=== PATIENT | female | born 1950 | race Caucasian/White ===

== ENCOUNTER 2016-05-12 15:41 | Inpatient (IN) | payer OTHER, MEDICARE ==
[~2016-05-12] VITALS: Ht 157.5 cm; Wt 80.2 kg
[2016-05-16] MEDS ORDERED: ASCO500C PO (09:32)
[2016-05-16] MEDS ORDERED: CENTTAB PO (09:32)
[2016-05-16] MEDS ORDERED: ATOR10TA15 PO (09:32)
[2016-05-16] MEDS ORDERED: LUTE20CA PO (09:32)
[2016-05-16] MEDS ORDERED: ATEN25TA PO (09:32)
[2016-06-01] MEDS ORDERED: TRANEXAMIC ACID IV SCH ×2 (09:00→14:00)
[2016-06-01] MEDS ORDERED: ceFAZolin 2 GM PREMIX 50 ML IV SCH (09:00)
[2016-06-01] MEDS: SODIUM CHLORID 0.9% 500 ML IV SCH (09:00)
[2016-06-01] MEDS ORDERED: DEXAMETHASONE SOD PHOS 20 MG/5 ML VIAL IV ONE (09:00)
[2016-06-01] MEDS ORDERED: VANCOMYCIN 1000 MG/NS 250 ML (for <70 kg) IV SCH ×2 (09:00)
[2016-06-01] MEDS: POVIDONE IODINE 7.5% SCRUB 118 ML BOTTLE TOP SCH (09:00)
[2016-06-01] MEDS ORDERED: SODIUM CHLORIDE 0.9% IV SCH ×2 (09:00→14:00)
[2016-06-01] MEDS ORDERED: INSULIN HUMAN REGULAR 1,000 UNITS/10 ML VIAL SQ PRN (09:00)
[2016-06-01] MEDS ORDERED: METOPROLOL TARTRATE 25 MG TAB PO PRN (09:00)
[2016-06-01] MEDS: ROPIVACAINE PERI-ARTICULAR INJECTION. PERIART SCH ×10 (09:00→12:05)
[2016-06-01 09:24] VITALS: BP 146/73; PULSE 69; RESP 16; TEMP 98.7; O2SAT 97
[2016-06-01] MEDS: LACTATED RINGER'S 1000 ML IV SCH (09:40)
[2016-06-01] MEDS ORDERED: DEXAMETHASONE SOD PHOS 4 MG/ML VIAL ONE (10:24)
[2016-06-01] MEDS ORDERED: MIDAZOLAM HCL 5 MG/5 ML VIAL ONE (10:24)
[2016-06-01] MEDS ORDERED: FAMOTIDINE 20 MG/2 ML VIAL ONE (10:24)
[2016-06-01] MEDS ORDERED: GENTAMICIN SULFATE 80 MG/2 ML VIAL ONE (10:54)
[2016-06-01] MEDS ORDERED: BUPIVACAINE LIPOSOME PF 1.3% 20 ML VIAL ONE (11:18)
--- NOTE | 2016-06-01 13:08 | PD.OP ---
cc: Tim Garland MD Operative Report Date of Surgery: Jun 01, 2016 Preoperative Diagnosis: Right knee severe osteoarthritis Postoperative Diagnosis: Same Procedure: Right total knee arthroplasty Anesthesia: Spinal and adductor canal block Surgeon: Tim Garland Asp Developer(s): ALEJANDRO Vega The surgical procedure was assisted by my Advanced Registered Nurse Practitioner. My MEDICAL VIDEOGRAPHER presence was necessary throughout this case for the manipulation and positioning of the surgical extremity. My MEDICAL VIDEOGRAPHER was assisting me throughout the duration of this procedure. The skill set of an Advance Registered Nurse Practitioner was medically necessary to complete this procedure. During the surgical case, the surgical appliance fitter was working at the back table and the Advance Registered Nurse Practitioner was directly assisting me. Operation and Findings: IMPLANTS: DePuy Attune: Patella: size 32. Femur, posterior stabilized size 4. Tibia, rotating platform size 3. Tibial insert, rotating platform, posterior stabilized size 8 mm thickness. ESTIMATED BLOOD LOSS: 150 cc TOURNIQUET TIME: 36 minutes at 250 mmHg pressure. JUSTIFICATION FOR PROCEDURE: The patient has end-stage osteoarthritis to the knee. There is an attached conservative measures pathway form in the chart that describes the nonoperative measures that were undertaken prior to consideration of surgical management. The patient understood the risks and benefits of surgical management. See my office notes for further details PROCEDURE: The patient was brought back to the operative theatre. Adequate anesthesia was obtained. The patient received intravenous vancomycin and Ancef. The lower extremity was prepped and draped in the usual sterile fashion.The leg was exsanguinated, the tourniquet was raised. A standard anterior incision was performed followed by medial parapatellar arthrotomy was performed. End-stage arthritis was identified. Osteotomy of the patella was performed. We drilled holes for the patella. We trialed the patella component. We placed an intramedullary guide into the distal femur. We ultimately resected 12 mm off of the distal femur in 5 degrees of valgus. The remnants of the ACL and PCL were resected. Osteotomy of the proximal tibia was performed, resecting 5 mm off of the medial side. This was done with 3 degrees of posterior slope using an extramedullary guide. The distal end of the guide was placed in the mid aspect of the ankle. The femur was sized, and four chamfer cuts were completed in 3 of external rotation. We then cut the central box in the distal femur to replace the PCL. We resected the remnants of the menisci and removed osteophytes off of the femur and tibia. We then trialed the knee. We punched the tibia for the keel, and then used standard technique to cement in components. Excess cement was removed. We trialed the knee again and the final polyethylene thickness was chosen to provide extension to 0 degrees, and flexion of 140 degrees to gravity. The ligaments were appropriately balanced. Lateral release was not necessary to obtain excellent patellofemoral tracking. The tourniquet was released and adequate hemostasis was obtained. An intra- articular injection of a ropivacaine cocktail was injected. The posterior knee was inspected for excess cement, which was removed. The final polyethylene was put into position after thorough irrigation. We then closed deep fascia with a #2 Stratafix followed by skin with 2-0 Vicryl followed by kalyn. Postop plan is to weight-bear as tolerated. DVT prophylaxis will be performed with Maurice, VENESSA sanchez, early mobilization, and Lovenox followed by aspirin. Tim Garland MD Jun 01, 2016 13:08
[2016-06-01] MEDS ORDERED: ASPI325T PO (13:10)
[2016-06-01] MEDS ORDERED: ENOX40P SQ (13:10)
[2016-06-01] MEDS ORDERED: NORC5TAB PO (13:10)
[2016-06-01] MEDS ORDERED: ZOLPIDEM TARTRATE 5 MG TAB PO PRN (13:15)
[2016-06-01] MEDS ORDERED: MAGNESIUM HYDROXIDE SUSP 30 ML CUP PO PRN (13:15)
[2016-06-01] MEDS ORDERED: ALUMINUM/MAGNESIUM/SIMETH 30 ML CUP PO PRN (13:15)
[2016-06-01] MEDS ORDERED: SODIUM CHLORIDE 0.9% FLUSH 5 ML FLUSH IVF PRN (13:15)
[2016-06-01] MEDS ORDERED: BISACODYL 10 MG SUPP PR PRN (13:15)
[2016-06-01] MEDS ORDERED: diphenhydrAMINE HCL 50 MG/ML VIAL IV PRN (13:15)
[2016-06-01] MEDS ORDERED: Post-op Orders (for Pharmacy) MISC XX ONE (13:15)
[2016-06-01] MEDS ORDERED: NALOXONE HCL 0.4 MG/ML AMP IV PRN (13:15)
[2016-06-01] MEDS ORDERED: MORPHINE SULFATE 4 MG/ML INJ IV PUSH PRN (13:15)
[2016-06-01] MEDS ORDERED: *morphine SULFATE 8 MG/ML PERIprocedure ONLY ONE ×3 (13:50→14:27)
[2016-06-01] MEDS ORDERED: LACTATED RINGER'S 1000 ML INJ 1,000 ML IV ONE (14:07)
[2016-06-01] MEDS ORDERED: PROPOFOL 200 MG/20 ML AMP IV ONE (14:07)
[2016-06-01] MEDS ORDERED: PHENYLEPH/NS 1000 MCG/10 ML SYR IV ONE (14:07)
[2016-06-01] MEDS: SODIUM CHLOR 0.9% 1000 ML INJ 1,000 ML IV SCH ×2 (14:12→23:05)
--- NOTE | 2016-06-01 15:11 | RADRPT ---
EXAM DATE/TIME: 06/01/2016 14:08 [facility] COMPARISON: No previous studies available for comparison. INDICATIONS: Post-op Right knee. MEDICAL HISTORY: None. SURGICAL HISTORY: None. ENCOUNTER: Initial ACUITY: 1 day PAIN SCORE: 0/10 LOCATION: Right Knee. FINDINGS: The patient is status post right total knee replacement. The prosthesis appears to be in good positi on. There is no fracture or dislocation. CONCLUSION: Status post right total knee replacement with prosthesis in good position. John Paul Mandujano MD on June 01, 2016 at 15:01 Board Certified Radiologist. This report was verified electronically.
--- NOTE | 2016-06-01 15:22 | PD.CONS ---
HPI [facility] Consult Requested By Primary Care Physician Paz Bateman M.D. Diagnoses: Past Family Social History Allergies: Coded Allergies: No Known Allergies (Verified , 06/01/16) Physical Exam Vital Signs Vital Signs Date Time Temp Pulse Resp B/P Pulse Ox O2 Delivery O2 Flow Rate FiO2 06/01/16 09:24 98.7 69 16 146/73 97 Physical Exam GENERAL: This is a well-nourished, well-developed patient, in no apparent distress. SKIN: No rashes, ecchymoses or lesions. Cool and dry. HEAD: Atraumatic. Normocephalic. No temporal or scalp tenderness. EYES: Pupils equal round and reactive. Extraocular motions intact. No scleral icterus. No injection or drainage. ENT: Nose without bleeding, purulent drainage or septal hematoma. Throat without erythema, tonsillar hypertrophy or exudate. Uvula midline. Airway patent. NECK: Trachea midline. No JVD or lymphadenopathy. Supple, nontender, no meningeal signs. CARDIOVASCULAR: Regular rate and rhythm without murmurs, gallops, or rubs. RESPIRATORY: Clear to auscultation. Breath sounds equal bilaterally. No wheezes , rales, or rhonchi. GASTROINTESTINAL: Abdomen soft, non-tender, nondistended. No hepato-splenomegaly , or palpable masses. No guarding. MUSCULOSKELETAL: Extremities without clubbing, cyanosis, or edema. No joint tenderness, effusion, or edema noted. No calf tenderness. Negative Homans sign bilaterally. NEUROLOGICAL: Awake and alert. Cranial nerves II through XII intact. Motor and sensory grossly within normal limits. Five out of 5 muscle strength in all muscle groups. Normal speech. Laboratory Laboratory Tests Test 06/01/16 09:40 Blood Type O POSITIVE Antibody Screen NEGATIVE Blood Bank Comment A/P Assessment and Plan See dictation. Case discussed with Dr. Cifuentes, pt seen on his behalf. Maia Hollingsworth Jun 01, 2016 15:22
[2016-06-01] MEDS: ACETAMINOPHEN/HYDROcodone 325 MG/5 MG TAB PO PRN ×2 (16:12→20:53)
--- NOTE | 2016-06-01 16:16 | MB ---
cc: JACKY CIFUENTES DATE OF CONSULTATION: 06/01/2016 DATE OF : 1950 REASON FOR CONSULTATION: Medical management. HISTORY OF PRESENT ILLNESS This is a pleasant 65-year-old white female who has been seeking medical treatment for severe osteoarthritis. The patient has been followed per Dr. Garland for her conservative treatment but at this point decided that a right total knee arthroplasty was an option she decided to take. She is status post her surgery now, currently in the PACU. She is resting quietly in the bed. Her eyes are closed but she does open them to verbal stimuli and is able to carry on a conversation. She is currently oriented x 4. Currently the patient has a CPM machine on. She denies any nausea, vomiting, no chest pain, no shortness of breath, no fever, appears to be resting comfortably. The patient denies any urinary symptoms of dysuria. She does note some frequency over the recent past but she attributed that to drinking large amounts of tea. PAST MEDICAL HISTORY 1. Hyperlipidemia. 2. Hypertension. 3. Fibroid tumors. 4. Seasonal allergies. 5. ETOH abuse. 6. Osteoarthritis of both knees. 7. Low back pain. PAST SURGICAL HISTORY 1. Exploratory lap for excision of fibroid tumors. 2. T&A in high school. 3. Currently status post total right knee arthroplasty. ALLERGIES None known. MEDICATION Please see med reconciliation sheet. Those medications are: 1. Atenolol. 2. Atorvastatin. 3. Multivitamins. 4. Lutein. 5. Vitamin C. SOCIAL HISTORY The patient is , currently lives at home with her . She denies any tobacco use. She does admit to ETOH use but states it is socially. No illicit drugs. FAMILY HISTORY Positive for pneumonia, CVA and hypertension. REVIEW OF SYSTEMS A 10-point review was obtained, positives noted are urinary frequency, status post her right total knee arthroplasty. Other systems are negative. PHYSICAL EXAMINATION VITAL SIGNS: Temperature is 98.7, pulse 69, respirations 16, blood pressure 146/73. 02 sat 97. GENERAL: This is a well-nourished, well-developed white female who looks to be her stated age, resting in the bed. She is alert, oriented and cooperative and a good historian. HEENT: Normocephalic, atraumatic. PERRLA at 2. No scleral icterus. Mucous membranes are pink and moist. No nasal drainage. NECK: Supple. Trachea is midline. SKIN: Warm and dry, slightly pale. CARDIOVASCULAR: S1, S2. No murmurs, rubs or gallops audible. She has no edema and her pulses are intact. PULMONARY: Lung sounds are essentially clear anteriorly and posteriorly but no wheezes, rales or rhonchi. She is using no accessory muscles to breathe. GASTROINTESTINAL: Abdomen is round, soft, nontender, nondistended. Active bowel sounds in all four quads. MUSCULOSKELETAL: She moves her extremities with purpose. She can wiggle her toes on the affected surgical right lower leg. Her hand radar engineering teacher are equal. NEUROLOGIC: She is alert and oriented x 4, a good historian, equal hand radar engineering teacher. PSYCHOLOGICAL: Appropriate mood and affect. DIAGNOSTIC DATA WBC count 8, RBC 4.49, hemoglobin 13.7, hematocrit 39.7, platelet count 266, monophils percentage absolute 10.5, sed rate is 10. Coags PT/INR 0.9. Chemistry sodium 141, potassium 4.1, chloride 105, carbon dioxide 28.7, amnion gap 7, BUN 21, creatinine 0.73, GFR 80. All other chemistries are normal. Her urine is yellow, hazy, PH is 5, specific gravity 1.026, trace of protein, negative for glucose, ketones, occult blood, nitrites and bilirubin. Her leukocyte esterase is moderate amount, trace of calcium oxylate crystal, a few mucus and a few bacteria, culture is indicated. Toxicology alcohol level 324. IMAGING STUDIES Report is pending. ASSESSMENT AND PLAN 1. Status post right total knee arthroplasty. 2. UTI. 3. Acute kidney injury with probable dehydration. 4. Hypertension. 5. Seasonal allergies. 6. Hyperlipidemia. 7. ETOH abuse. Our plan is to monitor her labs which will include her vital signs, temp, blood pressure, pulse and respirations. The patient will be maintained on Lovenox for DVT prophylaxis. She has also had home medications reconciled which will include bowel regime and stool softeners, laxative p.r.n., pain management per ortho. The patient is on cephazolin 1000 mg q. 6 IV times three bags. Vital signs will be q. 4. We will monitor any other medical needs. Currently the patient denies being diabetic. She will be on a regular diet, heart healthy. She is currently in sinus rhythm, heart rate 75. She is full code, full aggressive care and we will follow. Dictated by: ALEJANDRO Lazo Jacky Cifuentes MD JP/CONCHIS /3:13 PM /4:15 PM Patient was seen and examined on day of admission, as above [id number] time spent with the patient Chart reviewed Labs reviewed Medications reviewed Notes reviewed Plan of care discussed with ALEJANDRO Discussed with RN Discussed with patient ERASMO
[2016-06-01] MEDS: ONDANSETRON HCL 4 MG/2 ML VIAL IVP PRN ×2 (16:40→20:53)
[2016-06-01 17:40] VITALS: BP 111/57; PULSE 75; RESP 19; TEMP 95.7; O2SAT 96
[2016-06-01] MEDS: ATORVASTATIN 10 MG TAB PO SCH (20:53)
[2016-06-01] MEDS: SODIUM CHLORIDE 0.9% FLUSH 5 ML FLUSH IVF SCH (20:54)
[2016-06-01 20:58] VITALS: BP 101/58; PULSE 72; RESP 18; TEMP 97.5; O2SAT 93
[2016-06-02] VITALS (7 sets, daily range): BP systolic 104–137; BP diastolic 50–67; PULSE 70–85; RESP 16–18; TEMP 95.7–98.1; O2SAT 93–98
[2016-06-02] MEDS: SODIUM CHLOR 0.9% 1000 ML INJ 1,000 ML IV SCH ×2 (01:02→13:05)
[2016-06-02] MEDS: SODIUM CHLORID 0.9% 500 ML IV SCH (01:40)
[2016-06-02 07:03] LABS: HEMATOCRIT 32.2 % (35.0-46.0); MEAN CELL VOLUME 89.6 FL (80.0-100.0); MEAN CORPUSCULAR HEMOGLOBIN 30.3 PG (27.0-34.0); MEAN CORPUSCULAR HGB CONC 33.8 % (32.0-36.0); PLATELET COUNT 214 TH/MM3 (150-450); RED BLOOD COUNT 3.59 MIL/MM3 (4.00-5.30); RED CELL DISTRIBUTION WIDTH 12.5 % (11.6-17.2); REVIEW FLAG FINAL; WHITE BLOOD COUNT 12.4 TH/MM3 (4.0-11.0)
[2016-06-02] MEDS ORDERED: DEXAMETHASONE SOD PHOS 20 MG/5 ML VIAL IV ONE (07:45)
[2016-06-02] MEDS: ATENOLOL 25 MG TAB PO SCH (08:58)
[2016-06-02] MEDS: SODIUM CHLORIDE 0.9% FLUSH 5 ML FLUSH IVF SCH ×2 (08:59→21:24)
[2016-06-02] MEDS: POVIDONE IODINE 7.5% SCRUB 118 ML BOTTLE TOP SCH (08:59)
[2016-06-02] MEDS: LACTATED RINGER'S 1000 ML IV SCH (08:59)
[2016-06-02] MEDS: ACETAMINOPHEN/HYDROcodone 325 MG/5 MG TAB PO PRN ×4 (09:00→20:38)
--- NOTE | 2016-06-02 12:14 | PD.ORT.PN ---
Subjective Post Op Day #: 1 Subjective Remarks Patient is OOB in chair with moderate pain to the right knee. at bedside. Patient is ambulatory and voiding. Objective Vitals Vital Signs Date Time Temp Pulse Resp B/P Pulse Ox O2 Delivery O2 Flow Rate FiO2 06/02/16 04:00 97.5 76 18 115/50 96 06/02/16 00:00 97.0 80 18 104/55 94 06/01/16 22:00 21 06/01/16 20:58 97.5 72 18 101/58 93 06/01/16 17:40 95.7 75 19 111/57 96 06/01/16 17:00 97.6 74 13 130/63 98 Nasal Cannula 2 06/01/16 16:00 69 12 149/73 98 Nasal Cannula 2 06/01/16 15:00 70 12 139/59 100 Nasal Cannula 2 06/01/16 14:30 74 12 132/67 95 Room Air 06/01/16 14:15 74 12 114/56 94 Room Air 06/01/16 14:00 76 12 128/58 96 Room Air 06/01/16 13:45 78 12 114/75 97 Room Air 06/01/16 13:31 96.8 74 12 122/63 93 Room Air I/O 06/01/16 06/01/16 06/01/16 06/02/16 06/02/16 06/02/16 07:00 15:00 23:00 07:00 15:00 23:00 Intake Total 1700 ml 1064 ml 220 ml Output Total 700 ml 525 ml 650 ml Balance 1000 ml 539 ml -430 ml Intake Oral 580 ml 220 ml IV Total 484 ml Other 1700 ml Output Urine Total 600 ml 525 ml 650 ml Estimated Blood Loss 100 ml # Voids 1 # Bowel Movements 0 0 Result Diagram: 06/02/16 0615 Imaging Last 24 hours Impressions Knee X-Ray 06/01/16 1305 Signed Impressions: Service Date/Time: Wednesday, June 01, 2016 14:08 - CONCLUSION: Status post right total knee replacement with prosthesis in good position. John Paul Mandujano MD Procedures Right TKA Objective Remarks Patient's dressings are changed with scant serosanguineous drainage. Incision is well approximated with surgical clips intact. No redness or s/s of infection. EHL/TA/G intact. 2+ pedal pulse. Calf is soft and nontender. Mild swelling. + SILT. Assessment & Plan Ortho Post Op Day #: 1 Problem List: Assessment and Plan POD #1: Right TKA 1. Lovenox for DVT prophylaxis 2. WBAT RLE 3. Ice to the right knee PRN 4. Stable for discharge home with home health today. Pedro Latham Jun 02, 2016 12:14
--- NOTE | 2016-06-02 12:46 | HHI.FF ---
Face to Face Verification Diagnosis: (1) Status post total knee replacement, right (2) Primary localized osteoarthrosis, lower leg Physical Therapy Gait training, Transfer training, bed to chair Knee: Total knee Right LE Weight Bearing: WB as tolerated Right LE Range of Motion: Active ROM Nursing Nursing: Michael teaching, Dressing changes Dressing Changes: Daily dressing change I have seen patient Ryanne Singh on 06/02/16. My clinical findings support the need for the requested home health care services because: Limited ability to care for self High risk of falls I certify that my clinical findings support that this patient is homebound because: Post-op weakness Unsteady gait/balance Pedro Latham Jun 02, 2016 12:46
--- NOTE | 2016-06-02 12:46 | HHI.DCPOC ---
Discharge Care Plan Diagnosis: (1) Primary localized osteoarthrosis, lower leg (2) Status post total knee replacement, right Your Health Problems Are: Difficulty with ADL Goals to Promote Your Health * To prevent worsening of your condition and complications * To maintain your health at the optimal level Directions to Meet Your Goals Take your medications as prescribed Follow your dietary instruction Follow activity as directed Keep your appointments as scheduled Take your immunizations and boosters as scheduled If your symptoms worsen call your PCP, if no PCP go to Urgent Care Center or Emergency Room Smoking is Dangerous to Your Health. Avoid second hand smoke Call the 24-hour hour crisis hotline for domestic abuse at Pedro Latham Jun 02, 2016 12:46
[2016-06-02] MEDS ORDERED: CPMMACHINE (12:48)
[2016-06-02] MEDS ORDERED: WALKER WHEELS/F1 MIS (12:48)
[2016-06-02] MEDS ORDERED: COMMODE 3-IN-11 MIS (12:48)
[2016-06-02] MEDS: ENOXAPARIN SODIUM 40 MG/0.4 ML SYRINGE SQ SCH (13:07)
--- NOTE | 2016-06-02 13:31 | HHI.PR ---
Subjective Subjective Remarks Up to bathroom with walker Mild to moderate pain, postop Appetite good Nausea vomiting Debility mild Review of Systems Constitutional Constitutional Remarks 10 point ROS done. Positive for some weakness postop, anemia mild GI/Abdomen GI/Abdominal Exam: Constipation Integumentary Skin: Wounds (clean, dressing dry and intact, right total knee) Vitals/Results Intake & Output 06/01/16 06/01/16 06/02/16 15:00 23:00 07:00 Intake Total 1700 ml 1064 ml 220 ml Output Total 700 ml 525 ml 650 ml Balance 1000 ml 539 ml -430 ml Intake Oral 580 ml 220 ml IV Total 484 ml Other 1700 ml Output Urine Total 600 ml 525 ml 650 ml Estimated Blood Loss 100 ml # Voids 1 # Bowel Movements 0 0 Vital Signs Vital Signs Date Time Temp Pulse Resp B/P Pulse Ox O2 Delivery O2 Flow Rate FiO2 06/02/16 12:00 97.3 70 16 125/60 97 06/02/16 08:28 95.7 85 16 127/64 97 06/02/16 04:00 97.5 76 18 115/50 96 06/02/16 00:00 97.0 80 18 104/55 94 06/01/16 22:00 21 06/01/16 20:58 97.5 72 18 101/58 93 06/01/16 17:40 95.7 75 19 111/57 96 06/01/16 17:00 97.6 74 13 130/63 98 Nasal Cannula 2 06/01/16 16:00 69 12 149/73 98 Nasal Cannula 2 06/01/16 15:00 70 12 139/59 100 Nasal Cannula 2 06/01/16 14:30 74 12 132/67 95 Room Air 06/01/16 14:15 74 12 114/56 94 Room Air 06/01/16 14:00 76 12 128/58 96 Room Air 06/01/16 13:45 78 12 114/75 97 Room Air 06/01/16 13:31 96.8 74 12 122/63 93 Room Air CBC/BMP: 06/02/16 0615 Lab Results Laboratory Tests Test 06/02/16 06:15 White Blood Count 12.4 TH/MM3 Red Blood Count 3.59 MIL/MM3 Hemoglobin 10.9 GM/DL Hematocrit 32.2 % Mean Corpuscular Volume 89.6 FL Mean Corpuscular Hemoglobin 30.3 PG Mean Corpuscular Hemoglobin 33.8 % Concent Red Cell Distribution Width 12.5 % Platelet Count 214 TH/MM3 Mean Platelet Volume 8.5 FL Imaging Remarks Last Impressions Knee X-Ray 06/01/16 1305 Signed Impressions: Service Date/Time: Wednesday, June 01, 2016 14:08 - CONCLUSION: Status post right total knee replacement with prosthesis in good position. John Paul Mandujano MD Current Medications Active Medications Atenolol (Tenormin) 25 mg DAILY PO Last administered on 06/02/16 08:58; Admin Dose 25 MG; Start 06/02/16 at 09:00 Atorvastatin Calcium (Lipitor) 10 mg HS PO Last administered on 06/01/16 20:53; Admin Dose 10 MG; Start 06/01/16 at 21:00 Cefazolin Sodium/ Sodium Chloride (Ancef Inj/NS Inj) 100 ml @ 200 mls/hr Q6H IV Last administered on 06/02/16 04:32; Admin Dose 200 MLS/HR; Start 06/01/16 at 16:00; Stop 06/02/16 at 04:29; Status DC Dexamethasone Sodium Phosphate (Decadron Inj) 10 mg ONCE ONCE IV Last administered on 06/02/16 07:45; Admin Dose 10 MG; Start 06/02/16 at 07:45; Stop 06/02/16 at 07:46; Status DC Docusate Sodium (Colace) 100 mg BID PO; Start 06/02/16 at 21:00 Enoxaparin Sodium 40 mg 40 mg Q24H SQ Last administered on 06/02/16 13:07; Admin Dose 40 MG; Start 06/02/16 at 12:30; Stop 06/11/16 at 12:31 IV Flush 2 ml 2 ml BID IVF; Start 06/01/16 at 21:00 Morphine Sulfate (*morphine INJ PERIprocedure ONLY) 8 mg STK-MED ONCE .ROUTE Last administered on 06/01/16 13:50; Admin Dose 5 MG; Start 06/01/16 at 13:50; Stop 06/01/16 at 13:51; Status DC Morphine Sulfate (*morphine INJ PERIprocedure ONLY) 8 mg STK-MED ONCE .ROUTE Last administered on 06/01/16 14:04; Admin Dose 5 MG; Start 06/01/16 at 14:04; Stop 06/01/16 at 14:05; Status DC Morphine Sulfate (*morphine INJ PERIprocedure ONLY) 8 mg STK-MED ONCE .ROUTE Last administered on 06/01/16 14:27; Admin Dose 5 MG; Start 06/01/16 at 14:27; Stop 06/01/16 at 14:28; Status DC Multivitamins/ Minerals Therapeutic (Theragran M Tab) 1 tab BID PO; Start at 21:00; Stop 08/01/16 at 20:59 Tranexamic Acid/ Sodium Chloride (Cyklokapron Inj/ NS Inj) 106.79 ml @ 200 mls / hr UNSCH IV Last administered on 06/01/16 14:15; Admin Dose 200 MLS/HR; Start 06/01/16 at 14:00; Stop 06/01/16 at 20:00; Status DC Physical Exam General General Appearance: Well Developed, Well Nourished, No Acute Distress, Comfortable Eyes Eye Exam: Pupils Equal, Pupils Reactive Ears & Nose Ears & Nose Exam: Nasal Mucosa [place] Throat Throat Exam: Oral Mucosa [place] & Moist Neck Neck Exam: Neck Supple, Trachea Midline Pulmonary Resp Exam: Clear Bilaterally, Breath Sounds Equal, No Distress Cardiology CV Exam: Regular Gastrointestinal/Abdomen GI Remarks Abdomen taut, nontender Genitourinary Exam: Clear Urine Musculoskeletal MS Exam: Normal Tone, Good Strength MS Remarks With walker ambulates, status post total right knee arthroplasty Integumentary Skin Exam: Clear, Warm, Dry Extremeties Extremities Exam: No Edema Neurologic Neuro Exam: Alert, Awake, Oriented, Speech Clear, Moving All Extremities VTE Prophylaxis VTE Prophylaxis Device: SCDs Assessment/Plan Assessment/Plan ASSESSMENT AND PLAN 1. Status post right total knee arthroplasty. 2. UTI. 3. Acute kidney injury with probable dehydration. 4. Hypertension. 5. Seasonal allergies. 6. Hyperlipidemia. 7. ETOH abuse. Our plan is to monitor her labs vital signs, temp, bloodpressure, pulse and respirations. Lovenoxfor DVT prophylaxis. home medications reconciled bowel regime and stool softeners, laxative p.r.n., pain management per ortho. The patient is on cephazolin 1000 mg q. 6 IV times three bags. Vitalsigns will be q. 4. She will be on a regular diet, heart healthy. sinus rhythm, heart rate 75. UTI, Levaquin PO today after IVs complete. She is full code, full aggressive care and we will follow. Discharge planning probable tomorrow. BMP in a.m., CBC in a.m. D/W Dr. Cifuentes , patient seen on his behalf Discussed Condition with: Patient EdelMaia tubbs Jun 02, 2016 13:31
[2016-06-02] MEDS: LEVOFLOXACIN 500 MG TAB PO SCH (13:49)
[2016-06-02] MEDS: DOCUSATE SODIUM 100 MG CAP PO SCH (20:35)
[2016-06-02] MEDS: ATORVASTATIN 10 MG TAB PO SCH (20:36)
[2016-06-02] MEDS: MULTIVITAMINS/MINERALS THERAPEUTIC TAB PO SCH (20:36)
[2016-06-03 00:30] VITALS: BP 109/59; PULSE 81; RESP 16; TEMP 98.1; O2SAT 92
[2016-06-03] MEDS: SODIUM CHLOR 0.9% 1000 ML INJ 1,000 ML IV SCH (04:43)
[2016-06-03 06:36] LABS: HEMATOCRIT 25.9 % (35.0-46.0); MEAN CORPUSCULAR HEMOGLOBIN 31.2 PG (27.0-34.0); MEAN CORPUSCULAR HGB CONC 35.5 % (32.0-36.0); PLATELET COUNT 170 TH/MM3 (150-450); RED BLOOD COUNT 2.95 MIL/MM3 (4.00-5.30); RED CELL DISTRIBUTION WIDTH 12.3 % (11.6-17.2); REVIEW FLAG FINAL; WHITE BLOOD COUNT 7.6 TH/MM3 (4.0-11.0)
[2016-06-03 06:48] LABS: BICARBONATE 28.2 MEQ/L (21.0-32.0); POTASSIUM 3.4 MEQ/L (3.5-5.1)
[2016-06-03 08:30] VITALS: BP 154/69; PULSE 90; RESP 16; TEMP 97.9; O2SAT 96
[2016-06-03] MEDS: LACTATED RINGER'S 1000 ML IV SCH (09:00)
[2016-06-03] MEDS: POVIDONE IODINE 7.5% SCRUB 118 ML BOTTLE TOP SCH (09:00)
[2016-06-03] MEDS: SODIUM CHLORIDE 0.9% FLUSH 5 ML FLUSH IVF SCH (09:14)
[2016-06-03] MEDS: DOCUSATE SODIUM 100 MG CAP PO SCH (09:14)
[2016-06-03] MEDS: MULTIVITAMINS/MINERALS THERAPEUTIC TAB PO SCH (09:14)
[2016-06-03] MEDS: ATENOLOL 25 MG TAB PO SCH (09:14)
[2016-06-03] MEDS: ACETAMINOPHEN/HYDROcodone 325 MG/5 MG TAB PO PRN ×2 (09:15→14:00)
--- NOTE | 2016-06-03 10:59 | HHI.PR ---
Subjective Interval History Patient has some ache at surgical site No other complaint Did walk some Review of systems a 10 point system otherwise unremarkable Review of Systems GI/Abdomen GI/Abdominal Exam: Constipation Integumentary Skin: Wounds (clean, dressing dry and intact, right total knee) Vitals/Results Intake & Output 06/02/16 06/02/16 06/03/16 15:00 23:00 07:00 Intake Total 1200 ml 720 ml 480 ml Balance 1200 ml 720 ml 480 ml Intake Oral 1200 ml 720 ml 480 ml IV Total 0 ml # Voids 3 1 2 # Bowel Movements 0 0 Vital Signs Vital Signs Date Time Temp Pulse Resp B/P Pulse Ox O2 Delivery O2 Flow Rate FiO2 06/03/16 08:30 97.9 90 16 154/69 96 06/03/16 00:30 98.1 81 16 109/59 92 06/02/16 21:25 20 06/02/16 21:04 21 06/02/16 19:30 97.4 81 16 128/50 97 06/02/16 14:35 98.1 73 137/67 98 06/02/16 12:00 97.3 70 16 125/60 97 CBC/BMP: 06/03/16 0450 06/03/16 0450 Lab Results Laboratory Tests Test 06/03/16 04:50 White Blood Count 7.6 TH/MM3 Red Blood Count 2.95 MIL/MM3 Hemoglobin 9.2 GM/DL Hematocrit 25.9 % Mean Corpuscular Volume 88.0 FL Mean Corpuscular Hemoglobin 31.2 PG Mean Corpuscular Hemoglobin 35.5 % Concent Red Cell Distribution Width 12.3 % Platelet Count 170 TH/MM3 Mean Platelet Volume 8.8 FL Sodium Level 144 MEQ/L Potassium Level 3.4 MEQ/L Chloride Level 109 MEQ/L Carbon Dioxide Level 28.2 MEQ/L Anion Gap 7 MEQ/L Blood Urea Nitrogen 17 MG/DL Creatinine 0.54 MG/DL Estimat Glomerular Filtration 113 ML/MIN Rate Random Glucose 97 MG/DL Calcium Level 8.2 MG/DL Physical Exam General General Appearance: Well Developed, Well Nourished, No Acute Distress, Comfortable Eyes Eye Exam: Pupils Equal, Pupils Reactive Ears & Nose Ears & Nose Exam: Nasal Mucosa [place] Throat Throat Exam: Oral Mucosa [place] & Moist Neck Neck Exam: Neck Supple, Trachea Midline Pulmonary Resp Exam: Clear Bilaterally, Breath Sounds Equal, No Distress Cardiology CV Exam: Regular Musculoskeletal MS Exam: Normal Tone, Good Strength MS Remarks Dressing on right knee Integumentary Skin Exam: Clear, Warm, Dry Extremeties Extremities Exam: No Edema Neurologic Neuro Exam: Alert, Awake, Oriented, Speech Clear, Moving All Extremities VTE Prophylaxis VTE Prophylaxis Meds: Lovenox Assessment/Plan Assessment/Plan ASSESSMENT AND PLAN 1. Status post right total knee arthroplasty. 2. UTI. 3. Acute kidney injury with probable dehydration. 4. Hypertension. 5. Seasonal allergies. 6. Hyperlipidemia. 7. ETOH abuse. Labs reviewed Low potassium will replace Increased oblivious count improved Anemia of acute blood loss postop stable H&H Stable bloodpressure Lovenoxfor DVT prophylaxis. home medications reconciled bowel regime and stool softeners, laxative p.r.n., pain management per ortho. Tolerating by mouth diet UTI on May 16 lab now patient is asymptomatic Discussed with patient Barby Cifuentes MD Jun 03, 2016 10:59
[2016-06-03] MEDS ORDERED: POTASSIUM CHLORIDE 20 MEQ CONTROLLED RELEASE TAB PO ONE (11:00)
[2016-06-03 12:00] VITALS: BP 103/58; PULSE 88; RESP 16; TEMP 98.8; O2SAT 95
[2016-06-03] MEDS: ENOXAPARIN SODIUM 40 MG/0.4 ML SYRINGE SQ SCH (12:13)
[2016-06-03] MEDS: LEVOFLOXACIN 500 MG TAB PO SCH (14:00)
--- NOTE | 2016-06-04 23:50 | HHI.DS ---
Discharge Summary Admission Date Jun 01, 2016 at 08:23 Discharge Date: Jun 03, 2016 Admitting Diagnosis Primary localized OA, lower leg Status post total knee replacement, right Diagnosis: (1) Primary localized osteoarthrosis, lower leg Diagnosis: Principal (2) Status post total knee replacement, right Diagnosis: Principal Procedures Right TKA Brief History This is a 65 year old female patient with severe OA of the right knee. CBC/BMP: 06/03/16 0450 06/03/16 0450 Significant Findings Laboratory Tests Test 06/02/16 06/03/16 06:15 04:50 White Blood Count 12.4 TH/MM3 (4.0-11.0) Red Blood Count 3.59 MIL/MM3 2.95 MIL/MM3 (4.00-5.30) (4.00-5.30) Hemoglobin 10.9 GM/DL 9.2 GM/DL (11.6-15.3) (11.6-15.3) Hematocrit 32.2 % 25.9 % (35.0-46.0) (35.0-46.0) Potassium Level 3.4 MEQ/L (3.5-5.1) Chloride Level 109 MEQ/L (98-107) Calcium Level 8.2 MG/DL (8.5-10.1) PE at Discharge Patient's dressings are changed with scant serosanguineous drainage. Incision is well approximated with surgical clips intact. No redness or s/s of infection. EHL/TA/G intact. 2+ pedal pulse. Calf is soft and nontender. Mild swelling. + SILT. Hospital Course The patient was admitted to the hospital for severe OA of the right knee to have a right TKA. The patient's surgery went well without complications. The patient had a normal hospital course. The patient is WBAT. The patient will be discharged home with home health and will f/u in the office in . Pt Condition on Discharge: Stable Discharge Disposition: Disch w/ Home Health Serv Discharge Instructions Diet Instructions: As Tolerated, No Restrictions Activities You Can Perform: Weight Bearing as [place] Activities to Avoid: Strenuous Activity Follow up Referrals: Orthopedics with Tim Garland MD New Medications: Aspirin (Aspirin) 325 Mg Tab 325 MG PO DAILY Start Aspirin after Lovenox is completed. Prevent Blood Clot # 30 Ref 0 TAB Commode 3-in-1 (Commode 3-in-1) 1 Mis Mis 1 EA .ROUTE DIRECTED #1 Ref 0 EA CPM-Continuous Passive Motion Machine (CPM-Continuous Passive Motion Machine) 1 Ea Device 1 EA .ROUTE DIRECTED #1 Ref 0 EA Enoxaparin Inj (Lovenox Inj) 40 Mg/0.4 Ml Syr 40 MG SQ DAILY Start Aspirin after Lovenox is completed. Blood Clot Prevention # 10 Ref 0 SYRINGE Hydrocodone-Acetaminophen ([place]) 5-325 mg Tab 1-2 TAB PO Q4H PRN PAIN #60 Ref 0 TAB Walker with Front Wheels (Walker with Front Wheels) 1 Mis Mis 1 EA .ROUTE DIRECTED #1 Ref 0 EA Continued Medications: Ascorbic Acid (Vitamin C) 500 Mg Cap 500 MG PO BID Nutritional Supplement Ref 0 CAP Atenolol (Atenolol) 25 Mg Tab 25 MG PO DAILY Blood Pressure Management #30 TAB Atorvastatin (Atorvastatin) 10 Mg Tab 10 MG PO HS Cholesterol Management #30 Ref 0 TAB Lutein (Lutein) 20 Mg Cap 20 MG PO DAILY Nutritional Supplement Ref 0 CAP Multiple Vitamins W/ Minerals (Centrum Silver) 1 Tab 1 TAB PO DAILY Nutritional Supplement Ref 0 TAB Pedro Latham Jun 04, 2016 23:50
== END 2016-06-03 14:16 | disposition home health service (06) | DRG 470 ==
LOC: HSDI 06-01 08:23 → N06B 06-01 17:44
PROVIDERS: ADMIT Orthopaedic Surgery; ATTEND Orthopaedic Surgery
PROC: 0QRD0JZ Replacement of Right Patella with Synthetic Substitute, Open Approach (ICD-10-PCS; 2016-06-01)
PROC: 0SRC0J9 Replacement of Right Knee Joint with Synthetic Substitute, Cemented, Open Approach (ICD-10-PCS; principal; 2016-06-01 11:06)
DX: M17.0 Bilateral primary osteoarthritis of knee (principal); N17.9 Acute kidney failure, unspecified; N39.0 Urinary tract infection, site not specified; D62 Acute posthemorrhagic anemia; E86.0 Dehydration; I10 Essential (primary) hypertension; E78.5 Hyperlipidemia, unspecified; F10.10 Alcohol abuse, uncomplicated
CPT/HCPCS: 73560; 80048; 85027; 86850; 86900; 86901; 94150; C1776; C9290; J0171; J0690; J0735; J1100; J1580; J1650; J1885; J2250; J2270; J2370; J2405; J2795; J3370; J7030; J7050; J7120; L1830

== ENCOUNTER → 2016-05-16 | Outpatient (CLI) | payer OTHER, MEDICARE ==
[~2016-05-16] MED LIST: ASCO500C PO; ASPI325T PO; ATEN25TA PO; ATOR10TA15 PO; CENTTAB PO; COMMODE 3-IN-11 MIS; CPMMACHINE; ENOX40P SQ; LUTE20CA PO; NORC5TAB PO; WALKER WHEELS/F1 MIS
[2016-05-16 10:01] LABS: AUTOMATED NEUTROPHIL # 4.9 TH/MM3 (1.8-7.7); BASOPHIL # 0.1 TH/MM3 (0-0.2); BASOPHIL % 0.7 % (0.0-2.0); EOSINOPHIL # 0.2 TH/MM3 (0-0.4); EOSINOPHIL % 2.3 % (0.0-4.0); HEMATOCRIT 39.7 % (35.0-46.0); HEMO FLAGS DIFF FINAL; LYMPH % 24.7 % (9.0-44.0); MEAN CELL VOLUME 88.4 FL (80.0-100.0); MEAN CORPUSCULAR HEMOGLOBIN 30.6 PG (27.0-34.0); MEAN CORPUSCULAR HGB CONC 34.6 % (32.0-36.0); MONO % 10.5 % (0.0-8.0); NEUT % 61.8 % (16.0-70.0); PLATELET COUNT 266 TH/MM3 (150-450); RED BLOOD COUNT 4.49 MIL/MM3 (4.00-5.30); RED CELL DISTRIBUTION WIDTH 12.8 % (11.6-17.2)
[2016-05-16 10:12] LABS: APTT (PATIENT) 26.4 SEC (24.3-30.1); INTERNATIONAL NORMALIZED RATIO 0.9 RATIO; PROTHROMBIN TIME - PATIENT 10.2 SEC (9.8-11.6)
[2016-05-16 10:43] LABS: WESTERGREN SEDIMENTATION RATE 10 mm/hr (0-30)
[2016-05-16 11:06] LABS: ALKALINE PHOSPHATASE 61 U/L (45-117); ALT (GPT) 30 U/L (10-53); ANION GAP 7 MEQ/L (5-15); AST (GOT) 22 U/L (15-37); BICARBONATE 28.7 MEQ/L (21.0-32.0); BLOOD UREA NITROGEN 21 MG/DL (7-18); CHLORIDE 105 MEQ/L (98-107); GLOMERULAR FILTRATION RATE 80 ML/MIN (>89); GLUCOSE,FASTING 98 MG/DL (74-99); POTASSIUM 4.1 MEQ/L (3.5-5.1); SODIUM (NA) 141 MEQ/L (136-145); TOTAL BILIRUBIN ADULT 0.6 MG/DL (0.2-1.0)
--- NOTE | 2016-05-16 12:18 | RADRPT ---
EXAM DATE/TIME: 05/16/2016 11:35 [facility] COMPARISON: No previous studies available for comparison. INDICATIONS : Evaluate for pneumonia, pnuemothorax, or communicable disease. Pre-op total knee replacement. MEDICAL HISTORY : None. SURGICAL HISTORY : None. ENCOUNTER: Initial ACUITY: 1 day PAIN SCORE: 0/10 LOCATION: Bilateral chest FINDINGS: PA and lateral views of the chest demonstrate the lungs to be symmetrically aerated without evidence of mass, infiltrate or effusion. The cardiomediastinal contours are unremarkable. Osseous structure s are intact with multilevel disc disease of the midthoracic spine and marginal spurring. CONCLUSION: No acute disease. Rafael Eugene MD on May 16, 2016 at 12:16 Board Certified Radiologist. This report was verified electronically.
[2016-05-16 12:33] LABS: BACTERIA, URINE FEW /hpf; BLOOD, URINE NEG (NEG); CALCIUM OXALATE CRYSTALS,URINE FEW /hpf; GLUCOSE,URINE NEG (NEG); KETONE, URINE NEG (NEG); MUCUS URINE FEW /lpf (OCC); NITRITE,URINE NEG (NEG); SQUAMOUS EPITHELIAL CELL URINE 3 /hpf (0-5); TRANSITIONAL EPI CELLS, URINE 1 /hpf; URINE COLOR YELLOW (YELLW/STRAW)
[2016-05-16 12:34] LABS: COMMENT (UR) CULTURE INDICATED; CULTURE IF INDICATED CULTURE INDICATED
== END ==
LOC: CPRE 09:00
PROVIDERS: ATTEND Orthopaedic Surgery
DX: M17.11 Unilateral primary osteoarthritis, right knee (principal); B96.89 Other specified bacterial agents as the cause of diseases classified elsewhere; Z01.818 Encounter for other preprocedural examination; Z01.812 Encounter for preprocedural laboratory examination
CPT/HCPCS: 36415; 71020; 80053; 81001; 85025; 85610; 85652; 85730; 87077; 87086; 87186